=== PATIENT | female | born 1945 | race Caucasian/White ===

== ENCOUNTER 2016-05-12 07:35 | Day surgery (SDC) | payer MEDICARE, OTHER ==
[~2016-05-12] VITALS: Ht 147.3 cm; Wt 59.9 kg
[~2016-05-12 07:35] MED LIST: 0.9% Sodium Chloride 1,000 ML IV SCH; ACYC200C PO; ALLER-TEC PO; ASPI-973 PO; B IN1TAB2 PO; BECL8.7A6 INHALATION; DIAZ5TAB3 PO; DIPH25CA6 PO; FLUT16SP NS; LISI1TAB7 PO; MELA3TAB35 PO; PRAV20TA2 PO; Sodium Chloride LOK Flush 10 mL Syringe IV PRN; fentaNYL-PF 50 mCg/mL 2 mL Inj IVPUSH PRN
[2016-05-12 07:49] VITALS: BP 116/69; PULSE 87; RESP 14; O2SAT 96
[2016-05-12 08:44] VITALS: BP 112/71; PULSE 75; RESP 14; O2SAT 96
[2016-05-12 08:54] VITALS: BP 96/54; PULSE 71; RESP 14; O2SAT 98
--- NOTE | 2016-05-12 08:58 | ENDO ---
[address] [address] ENDOSCOPY PROCEDURE PATIENT: JADYN PALAFOX : 1945 MR#: [id number] ADMIT: 05/12/2016 JOB ID: [id number] DATE: 05/12/2016 TYPE OF OPERATION: Colonoscopy. PREOPERATIVE DIAGNOSIS(ES): History of tubular adenoma of colon. POSTOPERATIVE DIAGNOSIS(ES): Normal colonoscopy. ANESTHESIA: 1. Fentanyl 100 mcg. 2. Versed 5 mg IV administered. COMPLICATIONS: None. BLOOD LOSS: Minimal. DESCRIPTION OF PROCEDURE: After risks and benefits were explained to the patient, informed consent was obtained. After anesthesia administered, a colonoscope was then inserted from the rectum to the cecum. Mucosa carefully examined. Prep of the patient was excellent. After procedure was done, the scope was withdrawn and the procedure terminated. FINDINGS: Upon inspection of the anus, no masses, hemorrhoids, ulcers, or fissures that were seen. Throughout the entire examination, there were no polyps, masses, or lesions. Retroflexion was normal. IMPRESSIONS: Normal colonoscopy. RECOMMENDATIONS: Repeat colonoscopy five years given history of tubular adenoma polyps.
[2016-05-12 09:01] VITALS: BP 107/66; PULSE 76; O2SAT 98
== END 2016-05-12 23:59 | disposition home or self-care (01) ==
LOC: END 07:35
PROVIDERS: ATTEND Internal Medicine Gastroenterology
DX: Z12.11 Encounter for screening for malignant neoplasm of colon (principal); Z86.010 Personal history of colon polyps; J45.909 Unspecified asthma, uncomplicated; I10 Essential (primary) hypertension; E78.5 Hyperlipidemia, unspecified; M51.36 Other intervertebral disc degeneration, lumbar region; Z79.82 Long term (current) use of aspirin
CPT/HCPCS: G0121; G0500; J2250; J7030